=== PATIENT | male | born 1980 | race Caucasian/White ===

== ENCOUNTER 2017-02-12 05:23 | Emergency (ER) | payer SELFPAY ==
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
--- NOTE | 2017-02-12 06:39 | ED ORDER SUMMARY ---
..... Patient: LAMAR BARAJAS OrderSheet VisitID: [id number] [address] [place] [address] 36y, M Registration Date/Time: 02/12/2017 ORDER SHEET Weight: 77.1 kg (stated) Allergies: No Known Drug Allergy GENERAL ORDERS: Ribs Unilat w PA Chest Left Urgent (05:50 02/12/2017 Kiersten Herrera) (Ack 5:57 Lisa) (6:40 Perez R.N.) MEDICATION ORDERS: Toradol IM 60 mg (NOW) (05:51 02/12/2017 Kiersten Herrera) (Ack 6:01 Perez R.N.) (6:07 Perez R.N.) IV FLUIDS: ORDER SHEET NOTES: [Electronically signed by Shukri Uribe Dr. (06:44 02/12/2017)] [Electronically signed by Annika Kruger R.N. (06:46 02/12/2017)] [Electronically locked/signed by Annika Kruger R.N. (06:46 02/12/2017)]
--- NOTE | 2017-02-12 06:39 | ED ORDER SUMMARY ---
..... Patient: LAMAR BARAJAS OrderSheet [facility] VisitID: [id number] [address] [place] [address] 36y, M Registration Date/Time: 02/12/2017 ORDER SHEET Weight: 77.1 kg (stated) Allergies: No Known Drug Allergy GENERAL ORDERS: Ribs Unilat w PA Chest Left Urgent (05:50 02/12/2017 Kiersten Herrera) (Ack 5:57 Lisa) (6:40 Perez R.N.) MEDICATION ORDERS: Toradol IM 60 mg (NOW) (05:51 02/12/2017 Kiersten Herrera) (Ack 6:01 Perez R.N.) (6:07 Perez R.N.) IV FLUIDS: ORDER SHEET NOTES: [Electronically signed by Shukri Uribe Dr. (06:44 02/12/2017)] [Electronically signed by Annika Kruger R.N. (06:46 02/12/2017)] [Electronically locked/signed by Annika Kruger R.N. (06:46 02/12/2017)]
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
--- NOTE | 2017-02-12 06:46 | ED MAR SUMMARY ---
..... Medication Administration Record [facility] [address] [place] [address] Patient: LAMAR BARAJAS Visit ID: [id number] 36y, M Weight: 77.1 kg Height/Length: 71 in BMI: 23.7 ALLERGIES: No Known Drug Allergy Given 06:05 02/12/2017 Annika Kruger RManiNMani Medication Administered: TORADOL [IM] (KETOROLAC TROMETHAMINE), Dose: 60 mg IM. Medication Ordered: Toradol IM 60 mg (NOW).
--- NOTE | 2017-02-12 06:46 | ED MAR SUMMARY ---
..... Medication Administration Record [facility] [address] [place] [address] Patient: LAMAR BARAJAS Visit ID: [id number] 36y, M Weight: 77.1 kg Height/Length: 71 in BMI: 23.7 ALLERGIES: No Known Drug Allergy Given 06:05 02/12/2017 Annika Kruger RManiNMani Medication Administered: TORADOL [IM] (KETOROLAC TROMETHAMINE), Dose: 60 mg IM. Medication Ordered: Toradol IM 60 mg (NOW).
--- NOTE | 2017-02-12 06:46 | ED MED RECONCILIATION SUMMARY ---
Patient: LAMAR BARAJAS Medication Reconciliation Report [facility] VisitID: [id number] [address] [place] [address] 36y, M Registration Date/Time: 02/12/2017 Weight: 77.1 kg Height/Length: 71 in. BMI: 23.7 ALLERGIES: No Known Drug Allergy The patient's Home Medications are listed below: NONE. The source(s) of the original Home Medication information: Not obtained. The following Medications were given to the patient in the Emergency Department: Toradol [IM] IM 60 mg, administered: 02/12/2017 6:05:00 AM The following Medications were prescribed to the patient: Diclofenac 50 mg tablets: take 1 tablet orally every 8 hours as needed for pain or stiffness. Dispense thirty (30). No refill. -- Shukri Uribe Dr.
--- NOTE | 2017-02-12 06:46 | ED DISCHARGE INSTRUCTIONS ---
Patient: LAMAR BARAJAS General Instructions [facility] VisitID: [id number] [place] [address] 36y, M Registration Date/Time: 02/12/2017 Single contusion to the right chest. INSTRUCTIONS Apply ice for 20 minutes four times a day. Don't apply ice directly to skin. Your Current Medications: CONTINUE TAKING THE FOLLOWING MEDICATIONS: None*. Prescription Medications: Diclofenac 50 mg tablets: take 1 tablet orally every 8 hours as needed for pain or stiffness. Dispense thirty (30). No refill. Follow-up: Follow up with your doctor in about two days. Call for an appointment. Screening today revealed the patient's blood pressure to be in the hypertensive range. The patient should follow up with a primary care provider for blood pressure management. ADDITIONAL INFORMATION Contusion,Soft Tissue You have a CONTUSION, which is a bruise with swelling and some bleeding under the skin. There are no broken bones. This injury takes a few days to a few weeks to heal. Home Care: 1) Keep the injured part elevated to reduce pain and swelling. This is especially important during the first 48 hours. 2) Make an ice pack (ice cubes in a plastic bag, wrapped in a towel) and apply for 20 minutes every 1-2 hours the first day. Continue this 3-4 times a day until the pain and swelling goes away. 3) You may use acetaminophen (Tylenol) or ibuprofen (Motrin, Advil) to control pain, unless another pain medicine was prescribed. [ NOTE : If you have chronic liver or kidney disease or ever had a stomach ulcer or GI bleeding, talk with your doctor before using these medicines.] Follow Up with your doctor or this facility if you are not improving within the next THREE days. [NOTE: If X-rays were taken, they will be reviewed by a radiologist. You will be notified of any new findings that may affect your care.] Get Prompt Medical Attention if any of the following occur: -- Pain or swelling increases -- Injured arm or leg becomes cold, blue, numb or tingly -- Redness, warmth or drainage from the skin You have been given the following additional information: Contusion, Soft Tissue (Electronically signed by Shukri Uribe Dr. 02/12/2017 6:44)
--- NOTE | 2017-02-12 06:46 | ED MED RECONCILIATION SUMMARY ---
Patient: LAMAR BARAJAS Medication Reconciliation Report [facility] VisitID: [id number] [address] [place] [address] 36y, M Registration Date/Time: 02/12/2017 Weight: 77.1 kg Height/Length: 71 in. BMI: 23.7 ALLERGIES: No Known Drug Allergy The patient's Home Medications are listed below: NONE. The source(s) of the original Home Medication information: Not obtained. The following Medications were given to the patient in the Emergency Department: Toradol [IM] IM 60 mg, administered: 02/12/2017 6:05:00 AM The following Medications were prescribed to the patient: Diclofenac 50 mg tablets: take 1 tablet orally every 8 hours as needed for pain or stiffness. Dispense thirty (30). No refill. -- Shukri Uribe Dr.
== END 2017-02-12 06:44 | disposition home or self-care (01) ==
LOC: ED SRH 05:23
DX: S20.211A Contusion of right front wall of thorax, initial encounter (principal); V18.4XXA Pedal cycle driver injured in noncollision transport accident in traffic accident, initial encounter; Y93.89 Activity, other specified; Y92.410 Unspecified street and highway as the place of occurrence of the external cause; Y99.8 Other external cause status; F17.210 Nicotine dependence, cigarettes, uncomplicated